=== PATIENT | female | born 1970 | race Caucasian/White ===

== ENCOUNTER 2016-12-20 17:44 | Emergency (ER) | payer MEDICARE, OTHER ==
[~2016-12-20] VITALS: Ht 165.1 cm; Wt 131.5 kg
--- NOTE | ~2016-12-20 | CR63 ---
[facility] A Service of [facility] & [facility] RADIOLOGY TEXT RESULTS PATIENT: KI GAONA LOCATION: [facility] : 68 UNIT #: [id number] AGE: [address]: Irma Hargrove SEX: F ORDER DR: [id number] [facility] [address] [place], [place] [address] [id number] E MR#: [id number] Acc #: [id number] NAME: KI GAONA : 1970 SEX: F STUDY DATE/TIME: 12/20/2016 18:36 UNIT: [facility] ROOM: STUDY DESCRIPTION: CR Chest 2 View Attending Physician: Irma Hargrove P.A.-C. Ordering Physician: Irma Hargrove P.A.-C. Primary Care Physician: Milad Mckeon M.D. MEDICAL IMAGING REPORT This report is preliminary unless electronic signature is present EXAM Frontal chest 12/20/2016 INDICATION 46-year-old female with headache, cold chills, sore throat and cough for the past 30 days. TECHNIQUE Frontal chest compared with 04/20/2014. FINDINGS Exam degraded by technical factors and body habitus. Cardiac silhouette unremarkable. Vascularity normal. Lungs are clear. No pneumothorax. IMPRESSION Negative frontal chest. Technically limited study. Dictated by... Jonathan Nation M.D. THIS IS AN ELECTRONICALLY VERIFIED REPORT Jonathan Nation M.D. at 12/21/2016 11:29 PM Abhilash TD: 12/21/2016 10:36 JOB #: [id number] MEDICAL IMAGING REPORT Page 1 of 1 COPY
[~2016-12-20 17:44] MED LIST: ALBUTEROL 0.5ML INH; ALBUTEROL17 GM INH; ALPRAZOLAM PO; CYMBALTA PO; FLEXERIL10 MG PO; LEVAQUIN PO; LISINOPRIL; LISINOPRIL-HCTZ1 T18 PO; LORTAB 5/500 TA1 TA1 PO; LORTAB 7.51 TAB PO; NEURONTIN800 MG PO; NICOTINE TRANSD21 MG EXT; PREDNISONE PO; PROTONIX PO; SYMBICORT INH; VALIUM10 MG PO; ZESTRIL5 MG PO
[2016-12-20 18:07] LABS: URINE SOURCE CLEAN CATCH
[2016-12-20 18:15] LABS: URINE APPEARANCE CLEAR; URINE BILIRUBIN NEG (NEG); URINE BLOOD NEG (NEG); URINE COLOR YELLOW; URINE GLUCOSE NEG (NEG); URINE KETONE NEG (NEG); URINE LEUKOCYTE ESTERASE NEG (NEG); URINE NITRATE NEG (NEG); URINE PROTEIN NEG (NEG); URINE SPECIFIC GRAVITY 1.015 (1.003-1.035)
[2016-12-20 18:21] LABS: CULTURE INDICATED? NO
== END 2016-12-20 19:38 | disposition home or self-care (01) ==
LOC: CED 17:44 → CFTX 17:44
PROVIDERS: Physician Assistant
DX: J40 Bronchitis, not specified as acute or chronic (principal); I10 Essential (primary) hypertension; F32.9 Major depressive disorder, single episode, unspecified; F17.210 Nicotine dependence, cigarettes, uncomplicated; Z88.0 Allergy status to penicillin; Z88.2 Allergy status to sulfonamides; Z88.1 Allergy status to other antibiotic agents; Z88.8 Allergy status to other drugs, medicaments and biological substances
CPT/HCPCS: 71020; 81003; 87651; 94640; 99284; J1885